=== PATIENT | female | born 1980 | race Caucasian/White ===

== ENCOUNTER 2017-03-15 19:45 | Emergency (ER) | payer OTHER ==
[~2017-03-15] VITALS: Ht 154.9 cm; Wt 47.6 kg
[~2017-03-15 19:45] MED LIST: HYDROCODONE-AP1 EAC6 PO; MACROBID 100 M100 M2 PO
[2017-03-15 20:38] LABS: INFLUENZA A ANTIGEN None Detected (None Detect); INFLUENZA B ANTIGEN None Detected (None Detect)
[2017-03-15] MEDS ORDERED: VENTOLIN HFA 1818 GM INH (20:58)
[2017-03-15] MEDS ORDERED: NAPROSYN500 MG PO (20:58)
[2017-03-15] MEDS ORDERED: TESSALON PERLE100 MG PO (20:58)
[2017-03-15 21:12] VITALS: BP 132/69
== END 2017-03-15 21:13 | disposition home or self-care (01) ==
LOC: M.ERS 19:45
PROVIDERS: Physician Assistant
DX: J11.1 Influenza due to unidentified influenza virus with other respiratory manifestations (principal); Z88.5 Allergy status to narcotic agent